=== PATIENT | female | born 1970 | race Caucasian/White ===

== ENCOUNTER 2018-05-27 17:44 | Emergency (ER) | payer MEDICAID ==
[~2018-05-27] VITALS: Ht 167.6 cm; Wt 81.2 kg
[2018-05-27 18:25] VITALS: BP_SYST 119
[2018-05-27] MEDS ORDERED: IBUPROFEN 800 MG TABLET PO ONE (20:45)
[2018-05-27 20:50] VITALS: BP_SYST 121
== END 2018-05-27 19:52 | disposition home or self-care (01) ==
LOC: SED 17:44
DX: S16.1XXA Strain of muscle, fascia and tendon at neck level, initial encounter (principal); S39.012A Strain of muscle, fascia and tendon of lower back, initial encounter; V49.40XA Driver injured in collision with unspecified motor vehicles in traffic accident, initial encounter; Y93.89 Activity, other specified; Y92.410 Unspecified street and highway as the place of occurrence of the external cause; Y99.8 Other external cause status
CPT/HCPCS: 99283

== ENCOUNTER 2024-05-26 21:27 | Emergency (ER) | payer MEDICAID, OTHER ==
[~2024-05-26] VITALS: Ht 165.1 cm; Wt 72.6 kg
[2024-05-26 21:39] VITALS: BP_SYST 111; PULSE 69; RESP 16; TEMP 97; O2SAT 97
[2024-05-26] MEDS ORDERED: BACEYEO OP (23:23)
[2024-05-26] MEDS: KETOROLAC TROMETHAMINE 30 MG VIAL IM ONE (23:50)
[2024-05-26] MEDS: DIPHTH,PERTUSS(ACELL),TET VAC 0.5 ML VIAL (Tdap) I.M. ONE (23:50)
[2024-05-26 23:58] VITALS: BP_SYST 113; PULSE 66; RESP 18; TEMP 96.5; O2SAT 94
== END 2024-05-26 23:58 | disposition home or self-care (01) ==
LOC: SED 21:27
DX: T20.20XA Burn of second degree of head, face, and neck, unspecified site, initial encounter (principal); T22.212A Burn of second degree of left forearm, initial encounter; Z23 Encounter for immunization; X10.2XXA Contact with fats and cooking oils, initial encounter; Y93.89 Activity, other specified; Y92.89 Other specified places as the place of occurrence of the external cause; Y99.8 Other external cause status
CPT/HCPCS: 99284; 90715; 96372; 90471; J1885